=== PATIENT | female | born 1950 | race Caucasian/White ===

== ENCOUNTER → 2017-03-10 | Outpatient (CLI) | payer BC ==
[~2017-03-10] MED LIST: ALPR1T PO; ALPR1TAB21; AML5T; AMLO10TA82 PO; AMLO5TAB2 PO; ANTIDEPRESSANT; ATEN50TA PO; ATRV10T; AVAPRO; CETI10TA17 PO; CLIN300C3; CLIN300C3 PO; HTN MED; HYDR-3720; HYDR-3720 PO; HYDR1TAB8 OP; IRB150T PO; LIPITOR; OMEP40CA36 PO; SIMV40TA4 PO; SRTR100T PO; SULF1TAB38 PO; ZLP10T PO
[2017-03-10 09:16] LABS: BASOPHILS # (AUTO) 0.1 10^3/uL (0.0-0.1); BASOPHILS % (AUTO) 1 % (0-10); EOSINOPHILS # (AUTO) 0.3 10^3/uL (0.0-0.3); EOSINOPHILS % (AUTO) 5 % (0-10); LYMPHOCYTES % (AUTO) 43 % (12-44); MEAN CORPUSCULAR HEMOGLOBIN 32 PG (25-34); MEAN CORPUSCULAR HGB CONC 33 G/DL (32-36); MEAN CORPUSCULAR VOLUME 96 FL (80-99); MONOCYTES # (AUTO) 0.4 X 10^3 (0.0-1.0); MONOCYTES % (AUTO) 9 % (0-12); NEUTROPHILS % (AUTO) 42 % (42-75); PLATELET COUNT 216 10^3/uL (130-400); RED BLOOD COUNT 4.59 10^6/uL (4.35-5.85); RED CELL DISTRIBUTION WIDTH 12.7 % (10.0-14.5); WHITE BLOOD COUNT 4.7 10^3/uL (4.3-11.0)
[2017-03-10 09:35] LABS: ALANINE AMINOTRANSFERASE 22 U/L (0-55); ALBUMIN 4.3 GM/DL (3.2-4.5); ANION GAP 8 MMOL/L (5-14); ASPARTATE AMINO TRANSFERASE 19 U/L (5-34); BILIRUBIN,TOTAL 0.6 MG/DL (0.1-1.0); BLOOD UREA NITROGEN 14 MG/DL (7-18); BUN/CREATININE RATIO 18; CALCIUM 10.2 MG/DL (8.5-10.1); CARBON DIOXIDE 26 MMOL/L (21-32); CHLORIDE 107 MMOL/L (98-107); CHOLESTEROL 216 MG/DL (< 200); CREATININE SERUM 0.76 MG/DL (0.60-1.30); DIRECT LDL 98 MG/DL (1-129); GFR ESTIMATED > 60; GLUCOSE 94 MG/DL (70-105); POTASSIUM 4.5 MMOL/L (3.6-5.0); SODIUM 141 MMOL/L (135-145); TOTAL PROTEIN 7.1 GM/DL (6.4-8.2); TRIGLYCERIDES 90 MG/DL (<150); VLDL CHOLESTEROL 18 MG/DL (5-40)
--- NOTE | 2017-03-10 17:54 | Diagnostic Imaging Report ---
Bilateral screening mammogram 2D views with tomosynthesis. The current study was also evaluated with a Computer Aided Detection (CAD) system. INDICATION: Screening. No current complaints stated on the questionnaire. COMPARISON: 06/22/2014. FINDINGS: The breasts are composed of heterogeneously dense parenchyma which may decrease mammographic sensitivity. There is a circumscribed nodule in the lateral aspect of the left breast measuring 4 mm similar to prior exams and is confirmed on the tomographic images to be well circumscribed with internal lucency suggestive of benign etiology such as an intramammary lymph node. Benign-appearing calcifications seen. Allowing for technique and positional differences, no suspicious change is seen. IMPRESSION: No significant change. ACR BI-RADS Category 2: Benign findings. Result letter will be mailed to the patient. Note: At least 10% of breast cancer is not imaged by mammography. Dictated by: Dictated on workstation # [id number]
== END ==
LOC: RAD 08:55
PROVIDERS: ATTEND Family Medicine
DX: Z12.31 Encounter for screening mammogram for malignant neoplasm of breast (principal)
CPT/HCPCS: 36415; 77067; 80053; 80061; 85025

== ENCOUNTER 2017-04-17 05:42 | Outpatient (CLI) | payer BC ==
[~2017-04-17] VITALS: Ht 170.2 cm; Wt 70.3 kg
[~2017-04-17 05:42] MED LIST changes: -SIMV40TA4 PO
[2017-04-17] MEDS ORDERED: SIMV40TA4 PO (13:36)
== END 2017-04-17 13:40 ==
LOC: PREOP 05:42
PROVIDERS: ATTEND Surgery
DX: Z01.818 Encounter for other preprocedural examination (principal); Z12.11 Encounter for screening for malignant neoplasm of colon

== ENCOUNTER 2017-04-21 07:09 | Day surgery (SDC) | payer BC ==
[~2017-04-21] VITALS: Ht 170.2 cm; Wt 70.3 kg
[~2017-04-21 07:09] MED LIST changes: +SIMV40TA4 PO
[2017-04-21 07:20] VITALS: BP 122/79
[2017-04-21] MEDS ORDERED: LACTATED RINGERS 1,000 ML IV ONE (07:22)
[2017-04-21] MEDS ORDERED: proPOfol 200 MG/20 ML (DIPRIVAN) VIAL IV ONE (07:33)
[2017-04-21] MEDS ORDERED: fentaNYL INJECTION 100 MCG/2 ML AMP ONE (07:33)
[2017-04-21] MEDS ORDERED: MIDAZOLAM 2 MG/2 ML (VERSED) VIAL ONE (07:33)
[2017-04-21] MEDS ORDERED: LACTATED RINGERS 1,000 ML IV SCH (08:00)
--- NOTE | 2017-04-21 09:02 | Progress Note-Post Operative ---
Post-Operative Progess Note Surgeon (s)/Rubber Gasket Inspector Trimmer (s) Surgeon CARLO BURKETT DO Rubber Gasket Inspector Trimmer: na Pre-Operative Diagnosis screening colonoscopy Post-Operative Diagnosis colon polyps Procedure & Operative Findings Date of Procedure 04/21/17 Procedure Performed/Findings colonoscopy with hot bx polypectomy x 3 Anesthesia Type per slitter processed film Estimated Blood Loss Estimated blood loss (mL): none Specimens/Packing Specimens Removed colon polyp x 3 CARLO BURKETT DO Apr 21, 2017 9:02 am
--- NOTE | 2017-04-21 09:04 | Discharge Inst-Simple/Standard ---
Discharge Inst-Standard Patient Instructions/Follow Up Plan of Care/Instructions/FU: 2 weeks pina Activity as Tolerated: Yes Discharge Diet: Regular Diet (high fiber) CARLO BURKETT DO Apr 21, 2017 9:04 am
--- NOTE | 2017-04-21 09:14 | OPERATIVE REPORT ---
DATE OF SERVICE: 04/21/2017 PREOPERATIVE DIAGNOSIS: Screening colonoscopy. POSTOPERATIVE DIAGNOSIS: Colon polyps and diverticulosis. PROCEDURE: Colonoscopy with hot biopsy polypectomy x3. SURGEON: Carlo Estrada DO ANESTHESIA: Per OUTSIDE DEALER SALES REPRESENTATIVE. ESTIMATED BLOOD LOSS: None. COMPLICATIONS: None. INDICATIONS: The patient is a 66-year-old female due for screening colonoscopy. She understands risks and benefits of procedure and wished to proceed with procedure. Consent was signed in the chart. PROCEDURE: The patient was taken to the endoscopy suite, placed in left lateral recumbent position. Timeout was performed. Digital rectal exam was performed and there were no palpable polyps, mass or ulcerations. The scope was inserted in the rectum and advanced all the way to the cecum with minimal difficulty. Prep was adequate. Scope was slowly retracted back. There were no polyps, masses or ulcerations within the cecum. Within the descending colon, a small polyp was present, which hot biopsy polypectomy was performed. Scope was continued to be slowly retracted back into the hepatic flexure where there were two small polyps present by each other. Both of these were taken by hot biopsy polypectomy. The scope was then continued to be slowly retracted back. There were no polyps, mass or ulcerations within the transverse colon or descending colon. In the sigmoid colon, there was a minimal amount of diverticulosis present. There were no other polyps, masses or ulcerations. Once in the rectum, scope was also retroflexed noting no other pathology. Scope was returned to its normal position, slowly withdrawn until completely removed, noting no other pathology. The patient tolerated procedure well without any complications. She was taken to recovery room in stable condition. RECOMMENDATIONS: The patient will follow up on biopsy results in approximately 2 weeks. With diverticulosis, she was recommended to have high fiber diet. The patient will need repeat colonoscopy in 5 years. If she has any problems prior to that, she should be reevaluated at that time. Job ID: [id number] DocumentID: [id number] Dictated Date: 04/21/2017 09:06:46 High School Librarian Date: 04/21/2017 09:14:21 Dictated By: CARLO ESTRADA DO
[2017-04-21 09:15] VITALS: BP 127/81
[2017-04-21 09:45] VITALS: BP 129/76
[2017-04-21 10:05] VITALS: BP 129/76
== END 2017-04-21 10:05 | disposition home or self-care (01) ==
LOC: ENDO 07:09
PROVIDERS: ATTEND Surgery
DX: Z12.11 Encounter for screening for malignant neoplasm of colon (principal); D12.2 Benign neoplasm of ascending colon; D12.3 Benign neoplasm of transverse colon; K57.30 Diverticulosis of large intestine without perforation or abscess without bleeding; I10 Essential (primary) hypertension; E78.00 Pure hypercholesterolemia, unspecified; D50.9 Iron deficiency anemia, unspecified; K21.9 Gastro-esophageal reflux disease without esophagitis; K44.9 Diaphragmatic hernia without obstruction or gangrene; Z79.899 Other long term (current) drug therapy
CPT/HCPCS: 88305